=== PATIENT | male | born 1995 | race Caucasian/White ===

== ENCOUNTER 2021-12-23 18:10 | Inpatient (IN) | payer OTHER ==
[~2021-12-23] VITALS: Ht 177.8 cm; Wt 105.9 kg
[2021-12-23 19:38] LABS: HEMOGLOBIN 11.2 gm/dl (14.0-17.5); RED BLOOD COUNT 4.1 M/UL (4.20-5.50); WHITE BLOOD COUNT 9.6 K/UL (4.5-11.0)
[2021-12-23 20:08] LABS: BUN/CREATININE RATIO 12 (0-10)
[2021-12-24 02:34] LABS: HEMOGLOBIN 9.9 gm/dl (14.0-17.5); WHITE BLOOD COUNT 8.7 K/UL (4.5-11.0)
[2021-12-24 02:36] LABS: RED BLOOD COUNT 3.62 M/UL (4.20-5.50)
[2021-12-24 02:56] LABS: BUN/CREATININE RATIO 11 (0-10)
[2021-12-25 03:09] LABS: HEMOGLOBIN 10.2 gm/dl (14.0-17.5); RED BLOOD COUNT 3.77 M/UL (4.20-5.50); WHITE BLOOD COUNT 8.8 K/UL (4.5-11.0)
[2021-12-26 03:31] LABS: HEMOGLOBIN 9.4 gm/dl (14.0-17.5); RED BLOOD COUNT 3.47 M/UL (4.20-5.50); WHITE BLOOD COUNT 7.8 K/UL (4.5-11.0)
[2021-12-26 13:09] LABS: ANTI-DSDNA ANTIBODIES <1 IU/mL (0-9)
[2021-12-26 15:10] LABS: CK-BB 0 % (0); CK-MB 0 % (0-3); CK-MM 100 % (97-100); MACRO TYPE 1 0 % (Not Observed); MACRO TYPE 2 0 % (Not Observed)
[2021-12-26 16:11] LABS: ANTISTREPTOLYSIN O AB 30.1 IU/mL (0.0-200.0); COMPLEMENT C3, SERUM 111 mg/dL (82-167); COMPLEMENT C4, SERUM 15 mg/dL (12-38)
[2021-12-27 02:11] LABS: HEMOGLOBIN 9.9 gm/dl (14.0-17.5); RED BLOOD COUNT 3.67 M/UL (4.20-5.50); WHITE BLOOD COUNT 6.6 K/UL (4.5-11.0)
[2021-12-27 07:12] LABS: HBSAG SCREEN Negative (Negative); HEP A AB, IGM Negative (Negative); HEP B CORE AB, IGM Negative (Negative); HEP C VIRUS AB 0.3 (0.0-0.9)
[2021-12-27 11:17] LABS: CREATININE, URINE 70.8 mg/dL (Not Estab.)
[2021-12-27 11:17] LABS: CREATININE, URINE 70.9 mg/dL (Not Estab.)
[2021-12-28 02:06] LABS: HEMOGLOBIN 9.9 gm/dl (14.0-17.5); RED BLOOD COUNT 3.68 M/UL (4.20-5.50); WHITE BLOOD COUNT 6.5 K/UL (4.5-11.0)
[2021-12-28 08:15] LABS: ANTIMYELOPEROXIDASE (MPO) ABS <9.0 U/mL (0.0-9.0); ANTIPROTEINASE 3 (PR-3) ABS <3.5 U/mL (0.0-3.5); ATYPICAL PANCA <1:20 titer (Neg:<1:20); CYTOPLASMIC (C-ANCA) <1:20 titer (Neg:<1:20); PERINUCLEAR (P-ANCA) <1:20 titer (Neg:<1:20)
[2021-12-29 01:51] LABS: HEMOGLOBIN 9.9 gm/dl (14.0-17.5); RED BLOOD COUNT 3.68 M/UL (4.20-5.50)
[2021-12-30 15:18] LABS: HEMOGLOBIN 10.3 gm/dl (14.0-17.5); RED BLOOD COUNT 3.84 M/UL (4.20-5.50)
[2021-12-31 02:12] LABS: HEMOGLOBIN 10.7 gm/dl (14.0-17.5); RED BLOOD COUNT 3.97 M/UL (4.20-5.50); WHITE BLOOD COUNT 6.3 K/UL (4.5-11.0)
[2022-01-01 02:27] LABS: HEMOGLOBIN 10.1 gm/dl (14.0-17.5); RED BLOOD COUNT 3.74 M/UL (4.20-5.50); WHITE BLOOD COUNT 5.5 K/UL (4.5-11.0)
[2022-01-01 12:12] LABS: RNP ANTIBODIES <0.2 AI (0.0-0.9); SJOGREN'S ANTI-SS-A <0.2 AI (0.0-0.9); SJOGREN'S ANTI-SS-B <0.2 AI (0.0-0.9)
--- NOTE | 2022-01-01 17:14 | NUR ---
CALLED TO ROOM BY PATIENT. HE STATES, " CAN I JUST BE DISCHARGED AND GO HOME? CARDIOLOGY HAS CLEARED ME AND I CAN FOLLOW UP IN THE OFFICE OUTPATIENT. I WANT TO TALK TO THE DOCTOR. CALLED DR MEADOWS AND HE STATES, " IM VERY BUSY AND CANNOT COME TALK TO HIM. HE CAN SIGN OUT AMA"
[2022-01-02 02:24] LABS: HEMOGLOBIN 10.7 gm/dl (14.0-17.5); RED BLOOD COUNT 4.04 M/UL (4.20-5.50); WHITE BLOOD COUNT 5.3 K/UL (4.5-11.0)
[2022-01-02 13:09] LABS: ACTIN (SMOOTH MUSCLE) ANTIBODY 6 Units (0-19)
[2022-01-02 21:11] LABS: ADAMTS13 ACTIVITY 72.2 % (>66.8)
[2022-01-03 03:14] LABS: HEMOGLOBIN 10.4 gm/dl (14.0-17.5); RED BLOOD COUNT 3.86 M/UL (4.20-5.50); WHITE BLOOD COUNT 5.1 K/UL (4.5-11.0)
[2022-01-03] MEDS ORDERED: HYDRALAZINE HCL25 MG PO (07:59)
[2022-01-03] MEDS ORDERED: FERROUS SULFAT325 M2 PO (07:59)
[2022-01-03] MEDS ORDERED: CARVEDILOL25 MG PO (07:59)
[2022-01-03] MEDS ORDERED: JARDIANCE10 MG PO (07:59)
[2022-01-03] MEDS ORDERED: ALDACTONE 25MG25 MG PO (07:59)
[2022-01-03] MEDS ORDERED: ISOSORBIDE MONO60 MG PO (07:59)
[2022-01-03] MEDS ORDERED: ASPIRIN EC81 MG PO (08:04)
[2022-01-03] MEDS ORDERED: CATAPRES 0.1MG0.1 MG PO (08:12)
--- NOTE | 2022-01-03 09:07 | NUR ---
CALLED AND FAXED PTS LAB RESULTS TO DR ROSENBERG'S OFFICE.
[2022-01-03 20:08] LABS: METANEPHRINE, PL 45.1 pg/mL (0.0-88.0); NORMETANEPHRINE, PL 179.7 pg/mL (0.0-210.1)
[2022-01-04 08:15] LABS: DRVVT 40.9 sec (0.0-47.0); LUPUS REFLEX INTERPRETATION Comment: (.); PT 10.2 sec (9.1-12.0); PT 1:1NP 10.2 sec (9.1-12.0); PTT-LA 40.2 sec (0.0-51.9); THROMBIN TIME 16.9 sec (0.0-23.0)
[2022-01-05 12:11] LABS: A/G RATIO 0.9 (0.7-1.7); ALBUMIN 2.9 g/dL (2.9-4.4); ALPHA-1-GLOBULIN 0.3 g/dL (0.0-0.4); ALPHA-2-GLOBULIN 0.7 g/dL (0.4-1.0); BETA GLOBULIN 1.1 g/dL (0.7-1.3); GAMMA GLOBULIN 1.5 g/dL (0.4-1.8); GLOBULIN, TOTAL 3.6 g/dL (2.2-3.9); IMMUNOFIXATION RESULT, SERUM Comment: (.); IMMUNOGLOBULIN A, QN, SERUM 469 mg/dL (90-386); IMMUNOGLOBULIN G, QN, SERUM 1374 mg/dL (603-1613); IMMUNOGLOBULIN M, QN, SERUM 98 mg/dL (20-172); M-SPIKE Not Observed g/dL (Not Observed); PROTEIN, TOTAL, SERUM 6.5 g/dL (6.0-8.5)
[2022-01-05 17:13] LABS: 25-HYDROXY, VITAMIN D 13 ng/mL (.); 25-HYDROXY, VITAMIN D-2 <1.0 ng/mL (.); 25-HYDROXY, VITAMIN D-3 13 ng/mL (.)
== END 2022-01-03 09:29 | disposition home health service (06) | DRG 682 ==
LOC: ER1 18:10 → CDU 21:16 → PROG CARE 21:16
PROVIDERS: Internal Medicine; Internal Medicine Nephrology; Physician Assistant; ADMIT Internal Medicine
PROC: B24BZZZ Ultrasonography of Heart with Aorta (ICD-10-PCS; principal; 2021-12-24)
PROC: 0TB33ZX Excision of Right Kidney Pelvis, Percutaneous Approach, Diagnostic (ICD-10-PCS; 2021-12-28)
DX: N17.0 Acute kidney failure with tubular necrosis (principal); J18.9 Pneumonia, unspecified organism; Z20.822 Contact with and (suspected) exposure to COVID-19; I50.43 Acute on chronic combined systolic (congestive) and diastolic (congestive) heart failure; M31.19 Other thrombotic microangiopathy; I16.9 Hypertensive crisis, unspecified; I13.0 Hypertensive heart and chronic kidney disease with heart failure and stage 1 through stage 4 chronic kidney disease, or unspecified chronic kidney disease; E87.1 Hypo-osmolality and hyponatremia; I16.1 Hypertensive emergency; I42.8 Other cardiomyopathies; I42.0 Dilated cardiomyopathy; I08.1 Rheumatic disorders of both mitral and tricuspid valves; I27.20 Pulmonary hypertension, unspecified; E87.6 Hypokalemia; F17.220 Nicotine dependence, chewing tobacco, uncomplicated; F41.9 Anxiety disorder, unspecified; D63.1 Anemia in chronic kidney disease; N18.9 Chronic kidney disease, unspecified; Z82.49 Family history of ischemic heart disease and other diseases of the circulatory system; Z79.01 Long term (current) use of anticoagulants; Z79.82 Long term (current) use of aspirin
CPT/HCPCS: ECHO; 0240U; 36415; 71045; 77012; 80048; 80053; 80074; 80307; 81001; 82043; 82088; 82272; 82306; 82384; 82397; 82436; 82550; 82552; 82553; 82570; 82607; 82728; 82746; 82784; 83010; 83036; 83516; 83520; 83540; 83550; 83605; 83615; 83735; 83835; 83880; 83883; 83921; 83935; 83970; 84100; 84132; 84133; 84155; 84156; 84165; 84244; 84300; 84439; 84443; 84484; 84550; 84585; 85007; 85025; 85027; 85045; 85305; 85379; 85384; 85397; 85610; 85611; 85652; 85730; 86038; 86060; 86140; 86160; 86162; 86225; 86235; 86256; 86334; 86880; 87040; 88305; 88313; 88346; 88348; 89050; 93005; 93306; 93970; 96374; 96375; 96376; 99285; J0360; J0696; J1650; J1756; J2060; J2250; J2310; J3010; P9047

== ENCOUNTER → 2022-01-06 | Outpatient (CLI) | payer OTHER ==
[~2022-01-06] MED LIST: ALDACTONE 25MG25 MG PO; ASPIRIN EC81 MG PO; CARVEDILOL25 MG PO; CATAPRES 0.1MG0.1 MG PO; FERROUS SULFAT325 M2 PO; HYDRALAZINE HCL25 MG PO; ISOSORBIDE MONO60 MG PO; JARDIANCE10 MG PO
== END ==
LOC: LAB 11:17
PROVIDERS: Internal Medicine Nephrology
DX: N18.9 Chronic kidney disease, unspecified (principal)
CPT/HCPCS: 36415; 80048